=== PATIENT | female | born 1955 ===

== ENCOUNTER 2021-08-04 10:53 | Emergency (ER) | payer MEDICARE ==
[~2021-08-04 10:53] MED LIST: ASPIRIN325 MG PO; CERTAGEN1 EACH PO; PERCOCET 5-3251 EACH PO; PROBIOTIC1 EAC5 PO; SYNTHROID100 MCG PO; ZYRTEC10 M2 PO
[2021-08-04 11:55] LABS: BASOPHIL 0.7 % (0-2); EOSINOPHIL 1.5 % (0-7); HCT 41.7 % (37.0-47.0); HGB 13.7 g/dl (12.5-16.0); LYMPHOCYTE 11.5 % (15-48); MCH 31.4 pg (25.0-31.0); MCHC 32.9 g/dL (32.0-36.0); MCV 95.6 fL (78.0-100.0); MONOCYTE 3.5 % (0-12); MPV 9.5 fL (6.0-9.5); NEUTROPHIL 82.6 % (41-80); NRBC 0; PLT 272 K/uL (150-400); RBC 4.36 M/uL (4.20-5.40); RDW 13.2 % (11.5-14.0); WBC 5.9 K/uL (4.0-10.5)
[2021-08-04 12:16] LABS: LACTIC ACID 0.7 mmol/L (0.4-1.9)
[2021-08-04 12:42] LABS: BILIRUBIN NEGATIVE (NEGATIVE); BLOOD NEGATIVE Ery/uL (NEGATIVE); CLARITY CLEAR (CLEAR); COLOR YELLOW (YELLOW); GLUCOSE (U) NORMAL (NORMAL); LEUKOCYTES NEGATIVE Leu/uL (NEGATIVE); NITRITE NEGATIVE (NEGATIVE); PROTEIN NEGATIVE (NEGATIVE); UROBILINOGEN 0.2 mg/dL (0.2-1.0)
[2021-08-04 13:01] LABS: ALBUMIN 3.8 g/dL (3.4-5.0); BILIRUBIN - TOTAL 0.6 mg/dL (0.2-1.0); BUN/CREAT RATIO (CALC) 40.9 RATIO; CREATININE 0.66 mg/dL (0.51-0.95); GLOBULIN (CALCULATION) 3.2 g/dL; POTASSIUM 4.4 mmol/L (3.5-5.1)
[2021-08-04] MEDS ORDERED: ANTIVERT25 MG PO (16:05)
[2021-08-04] MEDS ORDERED: ONDANSETRON ODT4 MG PO (16:05)
== END 2021-08-04 16:22 | disposition home or self-care (01) ==
LOC: FER 10:53
PROVIDERS: Emergency Medicine
DX: R42 Dizziness and giddiness (principal); R55 Syncope and collapse; I10 Essential (primary) hypertension
CPT/HCPCS: 36415; 36600; 70450; 70551; 80053; 81003; 82803; 83605; 84145; 84484; 85025; 85379; 93005; J2405